=== PATIENT | male | born 1935 | race Caucasian/White ===

== ENCOUNTER 2019-08-31 11:53 | Emergency (ER) | payer MEDICARE ==
[~2019-08-31] VITALS: Ht 170.2 cm; Wt 70.0 kg
[~2019-08-31 11:53] MED LIST: ASCO10004 PO; ASPI-496 PO; ATOR20TA PO; CALC-680 PO; CHOL200024 PO; CLOP75TA52 PO; CYAN2500 PO; ISOS30TA8 PO; MULT-642 PO; MULT-717 PO; NITR0.4T28 SL; NITR2.5C8 PO; VITA100020 PO
--- NOTE | 2019-08-31 12:04 | NUR ---
[facility] became SOB. was laying on floor, tachypneic and c/o numbness and tingling in hands when EMS arrived. 1 nitro at home. 4 zofran/2 versed by EMS, pt feels better after, still c/o weakness. denies CP/SOB at moment. oriented to self and situation, hx dementia, takes aricept, poor historian. NSR on monitor ekg complete. some pvcs. lungs ctab. abd snt. pt c/o feeling tired. call [facility] in reach, fall precs. awaiting md.
--- NOTE | 2019-08-31 12:36 | NUR ---
pt to and from cxr.
[2019-08-31 12:46] LABS: BASOPHILS # (AUTO) 0.03 x10^3/uL (0-0.1); BASOPHILS % (AUTO) 0 % (0-1); EOSINOPHILS % (AUTO) 2 % (1-7); LYMPHOCYTES # (AUTO) 0.55 x10^3/uL (1-3.4); LYMPHOCYTES % (AUTO) 6 % (22-44); MD NO; MEAN CORPUSCULAR HEMOGLOBIN 32.2 pg (27.5-34.5); MEAN CORPUSCULAR HGB CONC 33.1 g/dL (33.2-36.2); MEAN CORPUSCULAR VOLUME 97.4 fL (81-97); MEAN PLATELET VOLUME 8.8 fL (7.4-10.4); MONOCYTES # (AUTO) 0.62 x10^3/uL (0.2-0.8); MONOCYTES % (AUTO) 7 % (2-9); NEUTROPHILS # (AUTO) 7.52 x10^3/uL (1.8-6.8); NEUTROPHILS % (AUTO) 84 % (42-75); PLATELET COUNT 179 x10^3/uL (130-400); RED BLOOD COUNT 4.56 x10^6/uL (4.38-5.82); RED CELL DISTRIBUTION WIDTH 13.5 % (9.4-14.8)
[2019-08-31 12:51] LABS: ALBUMIN 3.3 g/dL (3.4-5.0); ANION GAP 7 mmol/L (5-15); CALCIUM 8.3 mg/dL (8.5-10.1); CHLORIDE 110 mmol/L (98-107)
[2019-08-31 12:57] LABS: ALANINE AMINOTRANSFERASE 28 U/L (12-78); ALKALINE PHOSPHATASE 74 U/L (45-117); BILIRUBIN,TOTAL 0.8 mg/dL (0.2-1.0); CREATININE 1.02 mg/dL (0.7-1.3); TOTAL PROTEIN 6.5 g/dL (6.4-8.2); TROPONIN I < 0.015 ng/mL (0.000-0.045)
--- NOTE | 2019-08-31 14:34 | NUR ---
PT RESTING IN BED. AWAITIG REPEAT TROPONIN AT 1500. EOB TO URINATE, NO ISSUES. VSS. NO COMPLAINTS AT THIS TIME.
[2019-08-31 15:13] LABS: TROPONIN I < 0.015 ng/mL (0.000-0.045)
[2019-08-31 15:24] VITALS: BP 133/75
--- NOTE | 2019-08-31 15:25 | NUR ---
at bedside. updated. pt vss. no needs at this time.
== END 2019-08-31 16:11 | disposition home or self-care (01) ==
LOC: ED 16:05
DX: R07.89 Other chest pain (principal); E78.5 Hyperlipidemia, unspecified; I25.10 Atherosclerotic heart disease of native coronary artery without angina pectoris
CPT/HCPCS: 36415; 71045; 80053; 84484; 85025; 93005; 99284

== ENCOUNTER → 2020-10-02 | Outpatient (CLI) | payer MEDICARE ==
[~2020-10-02] MED LIST changes: +ASCO100018 PO; -ASCO10004 PO
== END | disposition home or self-care (01) ==
LOC: CVU 12:38
PROVIDERS: ATTEND Internal Medicine Cardiovascular Disease
DX: I08.8 Other rheumatic multiple valve diseases (principal); E78.5 Hyperlipidemia, unspecified; I65.23 Occlusion and stenosis of bilateral carotid arteries; I25.10 Atherosclerotic heart disease of native coronary artery without angina pectoris
CPT/HCPCS: 93306; 93356; 93880